=== PATIENT | female | born 1975 | race Caucasian/White ===

== ENCOUNTER 2020-02-29 14:25 | Observation (INO) | payer BC ==
[2020-02-29] MEDS ORDERED: ONDANSETRON 4 MG/2 ML VIAL ONE (15:20)
[2020-02-29] MEDS ORDERED: MORPHINE 4 MG/ML SYR ONE (15:20)
[2020-02-29] MEDS ORDERED: NA CHLORIDE 0.9% 1,000 ML ONE (15:21)
[2020-02-29 15:31] LABS: Basophils % 0.2 % (0-1.3); Hematocrit 42.7 % (36.0-45.0); Lymphocytes % 34.4 % (15.3-44.8); RBC Red Blood Cell Count 4.86 M/uL (3.86-4.86)
[2020-02-29 15:34] LABS: ALT/SGPT 26 U/L (12-78); AST/SGOT 17 U/L (15-37); Albumin 4.1 g/dL (3.4-5.0); Alkaline Phosphatase 94 U/L (45-117); BUN Blood Urea Nitrogen 18 mg/dL (7-18); Bicarbonate 24 mmol/L (21-32); Bilirubin Direct 0.3 mg/dL (0-0.2); Bilirubin Total 1.5 mg/dL (0.2-1.0); Glucose Level 90 mg/dL (74-106); Lipase 103 U/L (73-393); Potassium 3.7 mmol/L (3.5-5.1); Protein, Total 8.2 g/dL (6.4-8.2); Sodium Level 140 mmol/L (136-145)
[2020-02-29] MEDS ORDERED: DIPHENHYDRAMINE 50 MG/ML VIAL ONE (15:40)
[2020-02-29] MEDS ORDERED: FAMOTIDINE 20 MG/2 ML VIAL IV ONE (15:41)
--- NOTE | 2020-02-29 16:17 | RAD REPORT ---
EXAM DESCRIPTION: CT - Abdomen Pelvis W Contrast - 02/29/2020 4:00 pm CLINICAL HISTORY: Abdominal pain COMPARISON: none. TECHNIQUE: Computed axial tomography of the abdomen pelvis was obtained. 100 cc Isovue-300 was admin istered intravenously. Oral contrast was not requested which limits evaluation of bowel. All CT scans are performed using dose optimization technique as appropriate and may include automated exposure control or mA/KV adjustment according to patient size. FINDINGS: Gallstones without gallbladder wall thickening. The liver, spleen, pancreas, adrenals and kidneys are unremarkable There is no evidence of diverticulitis. Normal appendix 8.9 centimeter cystic mass left adnexal. No significant free fluid IMPRESSION: Cholelithiasis without cholecystitis 8.9 centimeter cystic mass left adnexa probably an ovarian cyst. Follow up ultrasound 6 weeks recomme nded for re-evaluation
--- NOTE | 2020-02-29 16:17 | RAD REPORT ---
EXAM DESCRIPTION: US - Abdomen Exam Limited - 02/29/2020 3:49 pm CLINICAL HISTORY: Abdominal pain. COMPARISON: None. FINDINGS: Several gallstones. Gallbladder wall is not thickened The biliary tree is normal caliber. IMPRESSION: Cholelithiasis without evidence of cholecystitis
[2020-02-29] MEDS ORDERED: CIPROFLOXACIN 400mg IV 400 MG/200 ML BAG IV ONE (17:06)
[2020-02-29] MEDS ORDERED: METRONIDAZOLE 500mg IVPB 500 MG/100 ML BAG IV ONE (17:07)
--- NOTE | 2020-02-29 17:27 | EDPHYS ---
Physician Documentation [facility] Name: Laura Hatch Age: 44 yrs Sex: Female : 1975 Arrival Date: 02/29/2020 Time: 14:34 Bed 7 Private MD: ED Physician Benjie Alexander HPI: 02/28 14:50 This 44 yrs old Female presents to ER via Ambulatory with complaints of jmm Fever, Abdominal Pain. 14:50 The patient presents with abdominal pain. Onset: The symptoms/episode began/occurred jmm gradually, 1 week(s) ago. The symptoms radiate to right back. Associated signs and symptoms: Pertinent positives: fever, nausea, Pertinent negatives: diarrhea, vomiting. The symptoms are described as achy. This is a 44 year old female that presents to the ED with complaints of upper back pain which began approx 1 week ago. Denies vomiting. Patient developed worsening pain yesterday. Denies diarrhea. . MANAGER PHILOSOPHY: 18:36 LMP N/A - control method ph Historical: - Allergies: 14:53 No Known Allergies; ll1 - PSHx: 14:53 Tubal ligation; pituatary adenoma removed; D \T\ C; ll1 - Immunization history:: Adult Immunizations unknown. - Social history:: Smoking status: Patient reports the use of cigarette tobacco products, smokes one-half pack cigarettes per day, Patient/guardian denies using alcohol, street drugs. ROS: 14:50 Constitutional: Negative for fever, chills, and weight loss, Cardiovascular: Negative jmm for chest pain, palpitations, and edema, Respiratory: Negative for shortness of breath, cough, wheezing, and pleuritic chest pain. 14:50 Abdomen/GI: Positive for abdominal pain. 14:50 Back: Positive for radiated pain. 14:50 All other systems are negative. Exam: 14:50 Constitutional: This is a well developed, well nourished patient who is awake, alert, jmm and in no acute distress. Head/Face: atraumatic. Eyes: EOMI, no conjunctival erythema appreciated ENT: Moist Mucus Membranes Neck: Trachea midline, Supple Chest/axilla: Normal chest wall appearance and motion. Cardiovascular: Regular rate and rhythm. No edema appreciated Respiratory: Normal respirations, no respiratory distress appreciated 14:50 Skin: General appearance color normal MS/ Extremity: Moves all extremities, no obvious deformities appreciated, no edema noted to the lower extremities Neuro: Awake and alert, normal gait Psych: Behavior is normal, Mood is normal, Patient is cooperative and pleasant 14:50 Abdomen/GI: Inspection: abdomen appears normal, Bowel sounds: normal, Palpation: soft, moderate abdominal tenderness, in the right upper quadrant and right lower quadrant. 14:50 Back: CVA tenderness, that is moderate, is noted on the right. Vital Signs: 14:50 BP 138 / 84; Pulse 90; Resp 18; Temp 98.8; Pulse Ox 100% ; Pain 8/10; ll1 15:44 BP 127 / 95; Pulse 89; Resp 18; Pulse Ox 98% on R/A; ph 16:30 BP 128 / 87; Pulse 81; Resp 18; Pulse Ox 98% on R/A; ph 17:30 BP 123 / 91; Pulse 72; Resp 16; Pulse Ox 99% on R/A; ph 19:20 BP 124 / 77; Pulse 76; Resp 18; Pulse Ox 100% on R/A; mg2 19:44 Temp 98.4(O); mg2 MDM: 14:50 Patient medically screened. [place] 16:35 ED course: Left message for Dr. Garvin, likely early cholecystitis, will admit with international logistics coordinator abx, is NPO since last night. . 17:25 Data reviewed: vital signs, nurses notes. Counseling: I had a detailed discussion with [place] the patient and/or guardian regarding: the historical points, exam findings, and any diagnostic results supporting the discharge/admit diagnosis, lab results, radiology results, the need for further work-up and treatment in the hospital. ED course: Dr. Alexander left voicemail with Dr. Garvin discussing the need for admission. . 02/28 14:51 Order name: Basic Metabolic Panel; Complete Time: 15:38 [place] 02/28 14:51 Order name: CBC with Diff; Complete Time: 15:38 [place] 02/28 14:51 Order name: Hepatic Function; Complete Time: 15:38 [place] 02/28 14:51 Order name: Lipase; Complete Time: 15:38 [place] 02/28 17:49 Order name: Basic Metabolic Panel [facility] 02/28 17:49 Order name: Basic Metabolic Panel [facility] 02/28 17:49 Order name: CBC with Automated Diff [facility] 02/28 17:49 Order name: CBC with Automated Diff [facility] 02/28 17:49 Order name: Lipase [facility] 02/28 17:49 Order name: Lipase [facility] 02/28 17:49 Order name: Liver (Hepatic) Function [facility] 02/28 17:49 Order name: Liver (Hepatic) Function [facility] 02/28 18:07 Order name: Urine Dipstick--Ancillary (enter results) 02/28 18:07 Order name: Urine --Ancillary (enter results); Complete Time: 18:45 02/28 14:51 Order name: IV Saline Lock; Complete Time: 15:04 [place] 02/28 14:51 Order name: Labs collected and sent; Complete Time: 15:04 [place] 02/28 14:51 Order name: US Abdomen Limited; Complete Time: 16:21 [place] 02/28 14:51 Order name: Urine Dipstick-Ancillary (obtain specimen); Complete Time: 18:10 [place] 02/28 15:11 Order name: CT Abd/Pelvis - IV Contrast Only; Complete Time: 16:21 [place] 02/28 17:49 Order name: NPO [facility] 02/28 18:08 Order name: Urine Dipstick-Ancillary; Complete Time: 18:45 [facility] 02/28 19:23 Order name: COVID-19 mg2 Administered Medications: 15:29 Drug: NS 0.9% 1000 ml Route: IV; Rate: 1 bolus; Site: right hand; ph 17:00 Follow up: Response: No adverse reaction; IV Intake: 1000ml ph 17:00 Follow up: IV Status: Completed infusion ph 15:30 Drug: morphine 4 mg Route: IVP; Site: right hand; ph 16:00 Follow up: Response: No adverse reaction; Pain is decreased ph 15:30 Drug: Zofran (Ondansetron) 4 mg Route: IVP; Site: right hand; ph 16:00 Follow up: Response: No adverse reaction; Nausea is decreased ph 15:37 Drug: Pepcid 20 mg Route: IVP; Site: right hand; ph 18:11 Follow up: Response: No adverse reaction ph 17:15 Drug: Cipro 400 mg Volume: 200 ml; Route: IVPB; Infused Over: 60 mins; Site: right hand;ph 18:25 Follow up: Response: No adverse reaction; IV Status: Completed infusion ph 17:16 Not Given (Other Intervention Used): diphenhydrAMINE 12.5 mg IVP once ph 17:50 Drug: Flagyl 500 mg Volume: 100 ml; Route: IVPB; Rate: 200 ml/hr; Infused Over: 30 ph mins; Site: right hand; 18:36 Follow up: Response: No adverse reaction; IV Status: Completed infusion ph 18:07 Drug: fentaNYL (PF) 25 mcg Route: IVP; Site: left antecubital; ph 18:10 Follow up: Response: No adverse reaction; Pain is decreased ph Disposition: 03/01 07:07 Co-signature as Attending Physician, Benjie Alexander MD. rn Disposition: 02/29/20 17:27 Hospitalization ordered by Stuart Garvin for Observation. Preliminary diagnosis is Acute cholecystitis. - Bed requested for Telemetry/MedSurg (observation). - Status is Observation. mg2 - Condition is Stable. - Problem is new. - Symptoms are unchanged. Signatures: Dispatcher [employer] Lydia Pedraza RN RN dw Ld Cortez PA PA Benjie Knight MD MD rn Hall, Patricia, RN RN Sarwat Hidalgo RN RN mg2 Arian Deras RN RN ll1 Corrections: (The following items were deleted from the chart) 02/28 18:31 17:27 Hospitalization Ordered by Stuart Garvin MD for Observation. Preliminary dw diagnosis is Acute cholecystitis. Bed requested for Telemetry/MedSurg (observation). Status is Observation. Condition is Stable. Problem is new. Symptoms are unchanged. [place] 18:37 18:31 02/29/2020 17:27 Hospitalization Ordered by Stuart Garvin MD for Observation. dw Preliminary diagnosis is Acute cholecystitis. Bed requested for Telemetry/MedSurg (observation). Status is Observation. Condition is Stable. Problem is new. Symptoms are unchanged. 19:56 18:37 02/29/2020 17:27 Hospitalization Ordered by Stuart Garvin MD for Observation. mg2 Preliminary diagnosis is Acute cholecystitis. Bed requested for Telemetry/MedSurg (observation). Status is Observation. Condition is Stable. Problem is new. Symptoms are unchanged.
--- NOTE | 2020-02-29 17:27 | ER ---
Nurse's Notes [facility] Name: Laura Hatch Age: 44 yrs Sex: Female : 1975 Arrival Date: 02/29/2020 Time: 14:34 Bed 7 Private MD: Diagnosis: Acute cholecystitis Presentation: 02/28 14:50 Chief complaint: Patient states: PCP saw this past week for UTI. RUQ abd pain and 99.4 ll1 oral temp. Sent for possible gallbladder problem. Coronavirus screen: Proceed with normal triage. Patient denies a cough. Patient denies shortness of breath or difficulty breathing. Patient denies measured and/or subjective temperature greater than 100.4F prior to today's visit. Patient denies travel on a cruise ship or to a country the [facility] currently lists as an affected area. Patient denies contact with known and/or suspected case of COVID-19. Ebola Screen: Patient denies travel to an Ebola-affected area in the 21 days before illness onset. No symptoms or risks identified at this time. Initial Sepsis Screen: Does the patient meet any 2 criteria? No. Patient's initial sepsis screen is negative. Does the patient have a suspected source of infection? Yes: Acute abdominal pain. Risk Assessment: Do you want to hurt yourself or someone else? Patient reports no desire to harm self or others. Onset of symptoms was February 23, 2020. 14:50 Method Of Arrival: Ambulatory ll1 14:50 Acuity: KRISTEN 3 ll1 PHOTO STYLIST: 18:36 LMP N/A - control method ph Historical: - Allergies: 14:53 No Known Allergies; ll1 - PSHx: 14:53 Tubal ligation; pituatary adenoma removed; D \T\ C; ll1 - Immunization history:: Adult Immunizations unknown. - Social history:: Smoking status: Patient reports the use of cigarette tobacco products, smokes one-half pack cigarettes per day, Patient/guardian denies using alcohol, street drugs. Screenin:54 Abuse screen: Denies threats or abuse. Denies injuries from another. Nutritional ph screening: No deficits noted. Tuberculosis screening: No symptoms or risk factors identified. Fall Risk None identified. Assessment: 15:40 General: Appears in no apparent distress. uncomfortable, well groomed, Behavior is ph calm, cooperative, appropriate for age, Reports fever for 12-24 hours. Pain: Complains of pain in right upper quadrant. Neuro: Level of Consciousness is awake, alert, obeys commands, Oriented to person, place, time, situation. Cardiovascular: Capillary refill < 3 seconds Patient's skin is warm and dry. Respiratory: Airway is patent Respiratory effort is even, unlabored, Respiratory pattern is regular, symmetrical. GI: Abdomen is round non-distended, Bowel sounds present X 4 quads. Abd is soft X 4 quads Reports lower abdominal pain, upper abdominal pain, nausea. Derm: Skin is intact, is healthy with good turgor, Skin is pink, warm \T\ dry. Musculoskeletal: Circulation, motion, and sensation intact. Range of motion: intact in all extremities. 16:30 Reassessment: Patient appears in no apparent distress at this time. Patient and/or ph family updated on plan of care and expected duration. Pain level reassessed. Patient is alert, oriented x 3, equal unlabored respirations, skin warm/dry/pink. 17:30 Reassessment: Patient appears in no apparent distress at this time. Patient and/or ph family updated on plan of care and expected duration. Pain level reassessed. Patient is alert, oriented x 3, equal unlabored respirations, skin warm/dry/pink. 18:25 Reassessment: Patient appears in no apparent distress at this time. Patient and/or ph family updated on plan of care and expected duration. Pain level reassessed. Patient is alert, oriented x 3, equal unlabored respirations, skin warm/dry/pink. Dr Garvin at bedside to speak w/ pt. 19:40 Reassessment: Patient appears in no apparent distress at this time. Patient and/or mg2 family updated on plan of care and expected duration. Pain level reassessed. Patient is alert, oriented x 3, equal unlabored respirations, skin warm/dry/pink. Vital Signs: 14:50 BP 138 / 84; Pulse 90; Resp 18; Temp 98.8; Pulse Ox 100% ; Pain 8/10; ll1 15:44 BP 127 / 95; Pulse 89; Resp 18; Pulse Ox 98% on R/A; ph 16:30 BP 128 / 87; Pulse 81; Resp 18; Pulse Ox 98% on R/A; ph 17:30 BP 123 / 91; Pulse 72; Resp 16; Pulse Ox 99% on R/A; ph 19:20 BP 124 / 77; Pulse 76; Resp 18; Pulse Ox 100% on R/A; mg2 19:44 Temp 98.4(O); mg2 ED Course: 14:34 Patient arrived in ED. mr 14:40 Ld Cortez PA is PHCP. jmm 14:40 Benjie Alexander MD is Attending Physician. jmm 14:43 Emilee Palacio RN is Primary Nurse. ph 14:52 Triage completed. ll1 14:53 Arm band placed on Patient placed in an exam room, on a stretcher. ll1 15:00 Initial lab(s) drawn, by me, sent to lab. Inserted saline lock: 20 gauge in right hand, dh3 using aseptic technique. Blood collected. 15:03 Patient has correct armband on for positive identification. Placed in gown. Bed in low ph position. Call light in reach. Side rails up X 1. Pulse ox on. NIBP on. Door closed. Noise minimized. Warm blanket given. 15:43 Radiology exam delayed due to IV insertion attempt and/or patient not having vm2 appropriate IV at this time. 15:48 Inserted saline lock: 20 gauge in left antecubital area, using aseptic technique. dh3 15:49 US Abdomen Limited In Process Unspecified. EDMS 16:00 CT Abd/Pelvis - IV Contrast Only In Process Unspecified. EDMS 17:26 Stuart Garvin MD is Hospitalizing Provider. jmm 18:36 No provider procedures requiring assistance completed. Patient admitted, IV remains in ph place. 19:37 covid 19 swab sent to lab. mg2 Administered Medications: 15:29 Drug: NS 0.9% 1000 ml Route: IV; Rate: 1 bolus; Site: right hand; ph 17:00 Follow up: Response: No adverse reaction; IV Intake: 1000ml ph 17:00 Follow up: IV Status: Completed infusion ph 15:30 Drug: morphine 4 mg Route: IVP; Site: right hand; ph 16:00 Follow up: Response: No adverse reaction; Pain is decreased ph 15:30 Drug: Zofran (Ondansetron) 4 mg Route: IVP; Site: right hand; ph 16:00 Follow up: Response: No adverse reaction; Nausea is decreased ph 15:37 Drug: Pepcid 20 mg Route: IVP; Site: right hand; ph 18:11 Follow up: Response: No adverse reaction ph 17:15 Drug: Cipro 400 mg Volume: 200 ml; Route: IVPB; Infused Over: 60 mins; Site: right hand;ph 18:25 Follow up: Response: No adverse reaction; IV Status: Completed infusion ph 17:16 Not Given (Other Intervention Used): diphenhydrAMINE 12.5 mg IVP once ph 17:50 Drug: Flagyl 500 mg Volume: 100 ml; Route: IVPB; Rate: 200 ml/hr; Infused Over: 30 ph mins; Site: right hand; 18:36 Follow up: Response: No adverse reaction; IV Status: Completed infusion ph 18:07 Drug: fentaNYL (PF) 25 mcg Route: IVP; Site: left antecubital; ph 18:10 Follow up: Response: No adverse reaction; Pain is decreased ph Intake: 17:00 IV: 1000ml; Total: 1000ml. ph Outcome: 17:27 Decision to Hospitalize by Provider. jesus 19:43 Admitted to Med/surg accompanied by tech, via wheelchair, room 210, with chart, Report mg2 called to PRINCE Matos 19:43 Condition: stable 19:43 Instructed on the need for admit, Demonstrated understanding of instructions. 19:56 Patient left the ED. mg2 Signatures: Dispatcher [employer] EDMS Ld Cortez PA PA jmm RiveraChristiane mr PalacioEmilee RN RN Dorothy Murray [facility] Dawn Galvan 3 Sarwat Hidalgo RN RN [facility] Arian Deras RN RN ll1 Corrections: (The following items were deleted from the chart) 14:53 14:50 Chief complaint: Patient states: Saw this past week for UTI. RUQ abd pain and ll1 99.4 oral temp. Sent for possible gallbladder problem. ll1
[2020-02-29] MEDS ORDERED: FENTANYL CITR 100 MCG/2 ML ONE (17:30)
[2020-02-29] MEDS ORDERED: ACETAMINOPHEN 500 MG TAB PO PRN (17:45)
[2020-02-29] MEDS ORDERED: ONDANSETRON 4 MG/2 ML VIAL IV PRN (17:45)
[2020-02-29] MEDS ORDERED: CEFOXITIN/SWI 1gm 1 GM/10 ML SYR IVP SCH (18:00)
[2020-02-29] MEDS ORDERED: CEFOXITIN SODIUM 1 GM/VIAL IVPB SCH (18:00)
[2020-02-29 18:21] LABS: Urine Blood 2+ (NEG); Urine Glucose NEGATIVE (NEG); Urine Protein NEGATIVE (NEG); Urine Specific Gravity 1.015 (1.005-1.030); Urine pH 5.5 (5.0-7.0)
[2020-02-29 20:04] VITALS: BMI 35.7
[2020-02-29] MEDS ORDERED: CEFOXITIN SODIUM 1 GM/VIAL ONE (20:50)
[2020-02-29] MEDS: D5 0.45 NS 1,000 ML IV SCH (20:51)
[2020-02-29] MEDS: CEFOXITIN/SWI 1gm 1 GM/10 ML SYR IVP SCH (20:58)
[2020-03-01] MEDS: FENTANYL CITR 100 MCG/2 ML IV PRN ×2 (00:01→23:41)
[2020-03-01] MEDS: CEFOXITIN/SWI 1gm 1 GM/10 ML SYR IVP SCH ×4 (02:17→20:03)
[2020-03-01] MEDS: D5 0.45 NS 1,000 ML IV SCH ×4 (03:38→23:41)
[2020-03-01 06:01] LABS: Absolute Lymphocytes (CBC) 2.1 K/uL (0.7-4.9); Basophils % 0.2 % (0-1.3); Hematocrit 39.7 % (36.0-45.0); Lymphocytes % 39.6 % (15.3-44.8); MPV 8.8 fL (7.6-11.3); RBC Red Blood Cell Count 4.49 M/uL (3.86-4.86)
[2020-03-01 06:56] LABS: ALT/SGPT 23 U/L (12-78); AST/SGOT 12 U/L (15-37); Albumin 3.5 g/dL (3.4-5.0); Alkaline Phosphatase 80 U/L (45-117); BUN Blood Urea Nitrogen 15 mg/dL (7-18); Bicarbonate 25 mmol/L (21-32); Bilirubin Direct 0.2 mg/dL (0-0.2); Bilirubin Total 1.2 mg/dL (0.2-1.0); Glucose Level 88 mg/dL (74-106); Lipase 127 U/L (73-393); Potassium 4.1 mmol/L (3.5-5.1); Protein, Total 7.1 g/dL (6.4-8.2); Sodium Level 140 mmol/L (136-145)
[2020-03-01] MEDS ORDERED: propofoL 200 MG/20 ML VIAL IV ONE (14:06)
[2020-03-01] MEDS ORDERED: LIDOCAINE 1% MPF 5 ML VIAL ONE (14:08)
[2020-03-01] MEDS ORDERED: Ringers Lactate 1,000 ML IV ONE ×2 (15:04→17:23)
[2020-03-01] MEDS ORDERED: FENTANYL CITR 100 MCG/2 ML ONE ×2 (15:23→16:26)
[2020-03-01] MEDS ORDERED: GLYCOPYRROLATE 0.2 MG/ML SYR ONE (15:23)
[2020-03-01] MEDS ORDERED: MIDAZOLAM HCL 2 MG/2 ML INJ ONE (15:23)
[2020-03-01] MEDS ORDERED: ROCURONIUM 50 MG/5 ML VIAL IV ONE (15:24)
[2020-03-01] MEDS ORDERED: KETOROLAC 30 MG/ML INJ ONE (15:24)
[2020-03-01] MEDS ORDERED: NEOSTIGMINE 1 MG/ML -5 ML ONE (15:24)
[2020-03-01] MEDS ORDERED: ONDANSETRON 4 MG/2 ML VIAL ONE (15:24)
[2020-03-01] MEDS ORDERED: dexAMETHasone 4 MG/ML VIAL ONE (15:24)
--- NOTE | 2020-03-01 15:39 | P.HP ---
Date of Service: 03/01/20 PC: This patient presents emergency room with severe right upper quadrant abdominal pain for diagnosis and treatment. HPC: Patient has been experiencing right upper quadrant abdominal pain, radiating into her back, over the last few months. Pain has intensified both in nature and frequency. Now has the worst pain that she has ever had, describes as almost like labor pains. PMH: Negative PSHx: Surgical resection of pituitary adenoma SOC: No known allergies SYS REVIEW: No cough, wheeze, shortness of breath. No chest pain or palpitations. No urinary complaints. O/E awake alert stable HEENT: Not jaundiced Chest: Chest movement equal bilaterally ABD: Soft , but tender in the right upper quadrant LOCO: Intact DATA: Has documented gallstones IMPRESSION: Acute on chronic cholecystitis with cholelithiasis, biliary colic PLAN: I will take her the operating room for laparoscopic possible open cholecystectomy. The risks of this procedure have been discussed. The possibility of bleeding, infection, injury to bile ducts blood vessels intestines has been described. The possible need for an open and/or further surgeries and procedures was discussed. She understands and wants us to proceed.
--- NOTE | 2020-03-01 17:27 | P.OP ---
Preoperative diagnosis: Acute on chronic cholecystitis with cholelithiasis, biliary colic Postoperative diagnosis: The same Primary procedure: Laparoscopic cholecystectomy Secondary procedure: Cholangiogram Anesthesia: General Estimated blood loss: Less than 10 cc Specimen: Gallbladder and contents Operative Technique: The patient was brought to the operating room placed supine on the table. After the induction of adequate general endotracheal anesthesia, the area of the abdomen is prepped with a DuraPrep solution, and draped in the usual aseptic manner. A subumbilical incision was made. This brought down through the skin and subcutaneous tissue. The Visiport was used to enter the peritoneal cavity and created pneumoperitoneum to approximately 12 mm of mercury. Under direct vision a 5 mm trocar was placed in the upper midline, and 2 other 5 mm trocars on the right lateral side. The patient's head was then elevated and rolled towards the purifying plant operator's side. We could see[a large amount of adhesions in the right upper quadrant. The omentum was adherent to the inferior edge of the right lobe of the liver. This was gently taken down using blunt sharp dissection as well as judicious use of the cautery. We could see a large distended gallbladder with evidence of acute on chronic cholecystitis with thickening of the peritoneal attachments.]. A grasper was placed on the fundus of the gallbladder. A slow tedious dissection was began to remove the ate colic type covering from the gallbladder. The fundus was quite redone. We regrasped about the body of the gallbladder itself. Another 1 was placed down by Belgica's pouch. Applying lateral traction we were able to dissect and finally expose the cystic duct and artery. The artery was dealt with 1st. It was clipped and divided in the usual manner. A clip was then placed between the gallbladder and the cystic duct. An opening was made into the cystic duct. We attempted then to pass the cholangiocath into the cystic duct.[our initial films showed just the distal portion of the mid common bile duct. The balloon was deflated and reinserted. Our 2nd films show that the gallbladder went up into the hepatic duct, but we tied a cholangiogram that showed no evidence of any filling defects. The catheter was then removed.]. Clips were now placed on the distal portion of the cystic duct. The cystic duct was then divided. The gallbladder was now dissected free from the liver bed, placed into an Endo-Catch, and brought out through the umbilical trocar site. The gallbladder fossa was inspected to en sure adequate hemostasis. It was irrigated with a saline solution and the irrigant aspirated from the peritoneal cavity. 0.25% Marcaine was aerosolized into the right upper quadrant and the gallbladder fossa. The umbilical trocar site was now approximated with an Endo Close and 2 absorbable sutures. The pneumoperitoneum was then collapsed, the suture tied, and harvey applied to the skin. A further 0.25% Marcaine was injected around are incision sites. At the end of the procedure the patient was in a stable condition when sent to the recovery room. Needle sponge instrument count were correct. 1 specimen was sent for histopathology. Complications: None Transferred to: Recovery Room Condition: Good
[2020-03-01] MEDS: HYDROMORPHONE HCL 1 MG/ML INJ ONE ×4 (17:41→18:00)
[2020-03-01 18:10] VITALS: O2SAT 99
[2020-03-01] MEDS ORDERED: MORPHINE 4 MG/ML SYR IV PRN (18:29)
[2020-03-01] MEDS: ONDANSETRON 4 MG/2 ML VIAL IV PRN (18:43)
--- NOTE | 2020-03-01 20:11 | RAD REPORT ---
EXAM DESCRIPTION: RAD - Cholangiogram Oper-Xray Or - 03/01/2020 5:27 pm FINDINGS: There were 5 portable C-arm views obtained during fluoroscopic assisted intraoperative cho langiogram. No suspicious or unexpected finding. Evaluation is limited when only selected images are submitted. Fluoro time was 0.1 minutes.
[2020-03-02] MEDS: D5 0.45 NS 1,000 ML IV SCH ×2 (02:00→08:32)
[2020-03-02] MEDS: CEFOXITIN/SWI 1gm 1 GM/10 ML SYR IVP SCH ×3 (03:03→15:55)
[2020-03-02] MEDS: ONDANSETRON 4 MG/2 ML VIAL IV PRN (05:44)
[2020-03-02 06:47] LABS: Absolute Lymphocytes (CBC) 1.4 K/uL (0.7-4.9); Basophils % 0.1 % (0-1.3); Lymphocytes % 16.5 % (15.3-44.8); MPV 8.6 fL (7.6-11.3); RBC Red Blood Cell Count 4.64 M/uL (3.86-4.86)
[2020-03-02 06:52] LABS: Albumin 3.6 g/dL (3.4-5.0); Bilirubin Direct 0.2 mg/dL (0-0.2); Bilirubin Total 1.1 mg/dL (0.2-1.0); Protein, Total 7.3 g/dL (6.4-8.2)
[2020-03-02] MEDS: HYDROCODONE/APAP 7.5/325 MG TAB PO PRN ×2 (08:33→16:29)
[2020-03-02 16:44] VITALS: BP 131/67; TEMP 98.3
== END 2020-03-02 17:00 | disposition home or self-care (01) ==
LOC: ER 14:25 → ERHOLD 17:44 → 2ND 19:44
PROVIDERS: ADMIT Surgery; ATTEND Surgery
PROC: 0FT44ZZ Resection of Gallbladder, Percutaneous Endoscopic Approach (ICD-10-PCS; principal; 2020-02-29)
PROC: BF13YZZ Fluoroscopy of Gallbladder and Bile Ducts using Other Contrast (ICD-10-PCS; 2020-02-29)
DX: K80.12 Calculus of gallbladder with acute and chronic cholecystitis without obstruction (principal); R50.9 Fever, unspecified; Z20.828 Contact with and (suspected) exposure to other viral communicable diseases; F17.210 Nicotine dependence, cigarettes, uncomplicated
CPT/HCPCS: 96365; 96361; 96368; 85025 ×3; 80048 ×2; 36415 ×2; 81025; 80076 ×3; 88304; 81003; 83690 ×2; 74177; 74300; 76705; 96375; 99285; 47563; U0002; Q9967; J2704; J1200; J2250; J3010 ×5; J1170 ×2; J2710; G0378 ×5; J7799 ×5; J7120 ×2; J7030; J0694; J2405 ×4; J0744

== ENCOUNTER 2020-04-17 06:10 | Day surgery (SDC) | payer BC ==
[2020-04-15 17:02] LABS: Absolute Lymphocytes (CBC) 1.8 K/uL (0.7-4.9); Basophils % 0.2 % (0-1.3); Hematocrit 42.7 % (36.0-45.0); Lymphocytes % 36.2 % (15.3-44.8); MPV 8.3 fL (7.6-11.3)
[2020-04-15 17:11] LABS: Urine Appearance CLEAR; Urine Blood 2+ (NEG); Urine Color YELLOW; Urine Glucose NEGATIVE (NEG); Urine Protein NEGATIVE (NEG); Urine Specific Gravity >=1.030 (1.005-1.030); Urine Urobilinogen 0.2 mg/dL (0.2-1.0); Urine pH 5.5 (5.0-7.0)
[2020-04-15 18:23] LABS: Urine Bilirubin NEGATIVE (NEG); Urine Microscopic Reflex ORDER UMIC
[2020-04-15 21:11] LABS: Urine Amorphous Sediment 1+ /HPF (NONE SEEN); Urine Bacteria 20-50 /HPF (<20); Urine Culture Reflex Order REFLEXED; Urine Mucus 4+ /HPF (NONE SEEN)
--- OUTSIDE RECORDS SUMMARY | 2020-04-17 06:17 | XMS REPORT | Continuity of Care Document ---
:1975 Author Organization [facility] t Address [address] Nascimento [address] [place] [id number] Care Team Providers Name Role Phone Blue BANKS Attending Clinician Problems This patient has no known problems. Allergies, Adverse Reactions, Alerts This patient has no known allergies or adverse reactions. Medications This patient has no known medications. Procedures This patient has no known procedures. Encounters Start End Encounter Admission Attending Care Care Encounter Source Date/Time Date/Time Type Type Clinicians Facility Department ID 2019-11-22 2019-11-22 Refill АНДРЕЙ [place] [id number] 00:00:00 00:00:00 Adriane Jason [id number] [place] [id number] Professio [phone] [address] 2019-11-06 2019-11-06 Case Blue MDSINCERE [id number] 00:00:00 00:00:00 Management Adriane Jason [id number] [place] [id number] Professio [id number] [address] 2019-11-06 2019-11-06 Telephone АНДРЕЙ [place] [id number] 00:00:00 00:00:00 Adriane Jason [id number] [place] [id number] Professio [id number] [address] 2019-10-30 2019-10-30 Office TIMO [place] [id number] 10:09:10 10:34:29 Visit Adriane Jason [id number] [place] [id number] Man [phone] [facility] Results This patient has no known results.
[2020-04-17 06:34] LABS: Specific Gravity 1.025 (1.005-1.030)
[2020-04-17] MEDS: Ringers Lactate 1,000 ML IV ONE (06:35)
[2020-04-17] MEDS ORDERED: CEFAZOLIN/SWI 2gm 2 GM/20 ML SYR ONE (06:35)
[2020-04-17] MEDS ORDERED: MIDAZOLAM HCL 2 MG/2 ML INJ ONE (07:06)
[2020-04-17] MEDS ORDERED: propofoL 200 MG/20 ML VIAL IV ONE (07:06)
[2020-04-17] MEDS ORDERED: FENTANYL CITR 250 MCG/5 ML ONE (07:06)
[2020-04-17] MEDS ORDERED: ONDANSETRON 4 MG/2 ML VIAL ONE ×2 (07:06→08:55)
[2020-04-17] MEDS ORDERED: ROCURONIUM 50 MG/5 ML VIAL IV ONE (07:06)
[2020-04-17] MEDS ORDERED: LIDOCAINE 2% MPF 5 ML VIAL ONE (07:06)
[2020-04-17] MEDS ORDERED: dexAMETHasone 10 MG/ML VIAL ONE (07:06)
--- NOTE | 2020-04-17 07:34 | PREOPHP ---
Date of Admission: 04/17/2020 History: A 45-year-old female, left adnexal mass, significant pelvic pain. Full preoperative counse ling concerning procedure and possible complications, including infection, blood loss, anesthetic com plications, injury to bladder, bowel, and ureter, possibility of open procedure. We will probably re move the left tube and ovary, possibly the right tube and ovary and we will get the appendix. Dr. Kalyani alexander is insurance account assistant surgeon, the patient is aware. Family History: Really noncontributory. Allergies: SHE HAS AN ALLERGY TO MORPHINE, OTHERWISE, NO ALLERGIES. Physical Examination: HEENT: Clear. Pupils are equal, round, and reactive to light and accommodation. Conjunctivae well perfused. No oral, lingual, or buccal lesion. Chest and Lungs: Clear. Heart: Without murmurs, thrills, heaves, or rubs. Breasts: Not examined. Abdomen: Soft, but lower abdominal tenderness. Pelvic: Shows tenderness, the patient is reporting really on the right side, but on the left side as well. Extremities: Clear, without edema, cyanosis, or clubbing. Plan: We will perform diagnostic laparoscopy, possible left salpingo-oophorectomy, possible right sa lpingo-oophorectomy and even possible appendectomy. Tumor markers are in the normal range. RODRIGUEZ/JC Voice ID: [id number]
[2020-04-17] MEDS ORDERED: GLYCOPYRROLATE 0.2 MG/ML SYR ONE (08:29)
[2020-04-17] MEDS ORDERED: NEOSTIGMINE 1 MG/ML -5 ML ONE (08:29)
[2020-04-17] MEDS ORDERED: KETOROLAC 30 MG/ML INJ ONE (08:29)
[2020-04-17] MEDS: HYDROMORPHONE HCL 1 MG/ML INJ ONE ×2 (08:46→08:52)
[2020-04-17] MEDS: HYDROMORPHONE HCL 2 MG/ML inj ONE ×3 (08:57→09:08)
--- NOTE | 2020-04-17 09:13 | OP ---
Surgeon: Wisam Burroughs MD Indications: Laura Hatch is 45-year-old female with severe pelvic pain, left adnexal mass. Tumor markers all normal. Full preoperative counseling concerning procedure and possible complications, i ncluding infection, blood loss, anesthetic complications, injury to bladder, bowel, ureter, postopera tive complications, clots in legs, and pneumonia. The patient knows fully well this does not constit benjamin all the possible problems that could occur during or following surgery. Description Of Procedure: After adequate general anesthesia, time-out was performed. The patient casper d been given 2 g of Ancef preop for prophylaxis. Trocars were placed below the umbilicus and above t he pubis and on the left lower quadrant after visualization of the upper abdomen where the patient re cently had gallbladder removal, nothing was seen abnormal. The uterus was viewed, noted to be normal . There was a large hemorrhagic looking left ovarian mass at least 9 cm. This was drained. Fluid w ill be sent to Pathology. It looked clear and normal. After the cyst had been reduced, a left salpi da silva-oophorectomy was performed using the LigaSure device. Minimal blood loss, less than 10 cc. The right tube and ovary were visualized, noted to be normal. The appendix was normal. All other abdomi nal contents viewed, noted to be normal. The procedure was discontinued at this point. Trocars jeanne harjinder and punctures sites closed. The patient tolerated all procedures well, transferred to the [facility] room in good condition. Final Diagnoses: Severe pelvic pain, left adnexal mass, diagnostic laparoscopy, cystectomy, left diane pingo-oophorectomy. RODRIGUEZ/MARISELAL Voice ID: [id number] Report ID: [id number]
--- NOTE | 2020-04-17 09:19 | DS ---
The patient underwent diagnostic laparoscopy, cystectomy, left salpingo-oophorectomy. Appendix noted to be normal and right tube and ovary noted to be normal. Minimal blood loss, 10 cc or less. The p atient will be observed for the next 2 hours, then dismissed. To return my office in 1 week for foll owup. To report any temperature elevation of 100 degrees or greater, severe pain, heavy bleeding, or any other type of abnormalities. We will send her home at her request with tramadol, although I doub t she will really need this. Pathology is pending, but all tumor markers were negative and suspect s imple cyst, possible serous cyst, but does not appear malignant at this point. Pathology pending. RODRIGUEZ/JC Voice ID: [id number] Report ID: [id number]
[2020-04-17] MEDS ORDERED: PROMETHAZINE INJ 25 MG/ML AMP ONE (09:32)
[2020-04-17 11:19] VITALS: BP 108/71; TEMP 96.6; O2SAT 96
== END 2020-04-17 10:40 | disposition home health service (06) ==
LOC: OR 06:10
PROVIDERS: ATTEND Specialist
PROC: 0UT64ZZ Resection of Left Fallopian Tube, Percutaneous Endoscopic Approach (ICD-10-PCS; 2020-04-17)
PROC: 0U914ZX Drainage of Left Ovary, Percutaneous Endoscopic Approach, Diagnostic (ICD-10-PCS; 2020-04-17)
PROC: 0UT14ZZ Resection of Left Ovary, Percutaneous Endoscopic Approach (ICD-10-PCS; principal; 2020-04-17 07:30)
DX: D27.1 Benign neoplasm of left ovary (principal); N80.1 Endometriosis of ovary; N83.02 Follicular cyst of left ovary; N83.8 Other noninflammatory disorders of ovary, fallopian tube and broad ligament; Z11.59 Encounter for screening for other viral diseases
CPT/HCPCS: 58661; 87088; 85025; 87086; 36415; 86900; 88108; 86850; 81025; 85610; 86901; 88305; 88307; 85730; 87077; 87186; 49322; U0002; J2704; J2550; J2250; J1170 ×2; J3010; J1100; J2710; J0690; J7120; J2405 ×2; 81003; 81015

== ENCOUNTER 2021-08-07 16:17 | Emergency (ER) | payer BC ==
[2021-08-07 16:44] LABS: Urine Blood 1+ (Negative); Urine Glucose Negative (Negative); Urine Protein Negative (Negative); Urine Specific Gravity >=1.030 (1.005-1.030); Urine pH 5.5 (5.0-7.0)
[2021-08-07 17:12] LABS: Urine Bacteria >50 /HPF (<20); Urine Mucus MOD /HPF (NONE SEEN); Urine RBC <5 /HPF (NONE SEEN)
[2021-08-07 17:15] LABS: Urine Specific Gravity/Preg >1.030 (1.005-1.030)
--- NOTE | 2021-08-07 17:15 | RAD REPORT ---
EXAM DESCRIPTION: CTStone Protocol - 08/07/2021 4:57 pm CLINICAL HISTORY: FLANK PAIN COMPARISON: No comparisonsAbdomen Pelvis W Contrast dated 02/29/2020 TECHNIQUE: CT of the abdomen and pelvis was performed. All CT scans are performed using dose optimization technique as appropriate and may include automated exposure control or mA/KV adjustment according to patient size. FINDINGS: Lower chest: No acute abnormality. Small hiatal hernia. Liver: No acute abnormality or suspicious lesions. Biliary: Cholecystectomy Stomach: No significant focal abnormality. Duodenum: No significant focal abnormality. Pancreas: No significant abnormality. Spleen: No significant abnormality. Adrenal: No suspicious lesions. Kidney/ureter: No hydronephrosis. Punctate right renal calculus. Retroperitoneum: No retroperitoneal adenopathy. Vascular: No aneurysm. Bowel: No significant focal abnormality. Normal appendix. Peritoneum: No ascites or free air. Bladder: Grossly unremarkable. Reproductive: No adnexal masses. Bones: No acute fracture. Other: n/a IMPRESSION: No acute intra-abdominal or pelvic finding. Punctate right renal calculus.
--- NOTE | 2021-08-07 17:22 | ER ---
Nurse's Notes [facility] Name: Laura Hatch Age: 46 yrs Sex: Female : 1975 Arrival Date: 08/07/2021 Time: 16:19 Bed Waiting Private MD: Francisco Castrejon R Diagnosis: UTI/ Urinary tract infection, site not specified Presentation: 08/07 16:33 Chief complaint: Patient states: possible kidney stone on left side, left flank pain X iw 1 week , constant , felt like she had a UTI, cloudy urine , has been through a round of abx. Coronavirus screen: At this time, the client does not indicate any symptoms associated with coronavirus-19. Ebola Screen: Patient negative for fever greater than or equal to 101.5 degrees Fahrenheit, and additional compatible Ebola Virus Disease symptoms Patient denies exposure to infectious person. Patient denies travel to an Ebola-affected area in the 21 days before illness onset. No symptoms or risks identified at this time. Initial Sepsis Screen: Does the patient meet any 2 criteria? No. Patient's initial sepsis screen is negative. Does the patient have a suspected source of infection? No. Patient's initial sepsis screen is negative. Risk Assessment: Do you want to hurt yourself or someone else? Patient reports no desire to harm self or others. Onset of symptoms was July 31, 2021. 16:33 Method Of Arrival: Ambulatory iw 16:33 Acuity: KRISTEN 3 iw Triage Assessment: 17:28 General: Appears in no apparent distress. Behavior is calm, cooperative. 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 - Social history:: Smoking status: Smoking status: Patient/guardian denies using tobacco. Screenin:25 Abuse screen: Denies threats or abuse. Denies injuries from another. Nutritional iw screening: No deficits noted. Tuberculosis screening: No symptoms or risk factors identified. Fall Risk None identified. Assessment: 16:35 General: Appears in no apparent distress. Behavior is calm, cooperative. Pain: iw Complains of pain in pelvis and left flank. Neuro: Level of Consciousness is awake, alert, obeys commands, Oriented to person, place, time, situation, Moves all extremities. Full function. Cardiovascular: Patient's skin is warm and dry. Respiratory: Respiratory effort is even, unlabored. GI: Bowel sounds present X 4 quads. Abd is soft X 4 quads. Derm: Skin is intact, is healthy with good turgor. Musculoskeletal: Range of motion: intact in all extremities. Vital Signs: 16:34 BP 131 / 94; Pulse 75; Resp 16; Temp 98.8; Pulse Ox 100% on R/A; Weight 97.07 kg; iw Height 5 ft. 6 in. (167.64 cm); 16:34 Body Mass Index 34.54 (97.07 kg, 167.64 cm) iw ED Course: 16:19 Patient arrived in ED. as 16:20 Francisco Castrejon MD is Private Physician. as 16:34 Triage completed. iw 16:35 Patient has correct armband on for positive identification. iw 16:36 Arm band placed on. iw 16:37 Holly Barraza FNP-C [facility]. kb 16:37 Mike Can MD is Attending Physician. kb 16:57 CT Stone Protocol In Process Unspecified. EDMS 17:25 No provider procedures requiring assistance completed. Patient did not have IV access iw during this emergency room visit. 17:28 Scarlet Landaverde, RN is Primary Nurse. iw Administered Medications: 17:29 Drug: Ibuprofen 800 mg Route: PO; iw 17:30 Follow up: Response: No adverse reaction iw 17:29 Drug: Augmentin (Amoxicillin-Clavulanate) 875 mg Route: PO; iw 17:29 Follow up: Response: No adverse reaction iw 17:30 Follow up: Response: No adverse reaction iw Outcome: 17:21 Discharge ordered by . kb 17:28 Discharged to home ambulatory. iw 17:28 Condition: good 17:28 Discharge instructions given to patient, Instructed on discharge instructions, follow up and referral plans. medication usage, Demonstrated understanding of instructions, follow-up care, medications, Prescriptions given X 2. 17:29 Patient left the ED. iw Signatures: Dispatcher [employer] EDMS Holly Barraza FNP-C BEAM SAW OPERATOR-Ckb Padmaja Ontiveros as Scarlet Landaverde, RN RN iw
--- NOTE | 2021-08-07 17:22 | EDPHYS ---
Physician Documentation [facility] Name: Laura Hatch Age: 46 yrs Sex: Female : 1975 Arrival Date: 08/07/2021 Time: 16:19 Bed Waiting Private MD: Francisco Castrejon R ED Physician Mike Can HPI: 08/07 17:20 This 46 yrs old Female presents to ER via Ambulatory with complaints of kb Possible Kidney Stone. 17:20 The patient complains of pain in the left flank. Severity of pain: At its worst the kb pain was moderate in the emergency department the pain is unchanged. The patient has not experienced similar symptoms in the past. The patient has not recently seen a physician. 17:20 The pain radiates to the left inguinal area. Onset: The symptoms/episode began/occurred kb 1 week(s) ago. Modifying factors: The symptoms are alleviated by nothing. the symptoms are aggravated by nothing. Associated signs and symptoms: The patient has no apparent associated signs or symptoms. IP PARALEGAL: 16:34 LMP 07/31/2021 iw Historical: - Allergies: 16:34 No Known Allergies; iw - Home Meds: 16:36 None [Active]; iw - PMHx: 16:36 None; iw - PSHx: 16:36 Cholecystectomy; left ovary removed; pituitary tumor removed; tubal ligation; iw - Immunization history:: Client reports receiving the 2nd dose of the Covid vaccine. - Social history:: Smoking status: Smoking status: Patient/guardian denies using tobacco. ROS: 17:19 Constitutional: Negative for fever, chills, and weight loss. kb 17:19 : Positive for flank pain, suprapubic pain. 17:19 All other systems are negative. Exam: 17:19 Constitutional: This is a well developed, well nourished patient who is awake, alert, kb and in no acute distress. Head/Face: Normocephalic, atraumatic. ENT: Moist Mucous membranes Respiratory: Respirations even and unlabored. No increased work of breathing, no retractions or nasal flaring. Abdomen/GI: Soft, non-tender. No distention Skin: Warm, dry with normal turgor. Normal color. MS/ Extremity: Pulses equal, no cyanosis. Neurovascular intact. Full, normal range of motion. Neuro: Awake and alert, GCS 15, oriented to person, place, time, and situation. Moves all extremities. Normal gait. Psych: Awake, alert, with orientation to person, place and time. Behavior, mood, and affect are within normal limits. 17:19 Back: pain, that is moderate, ROM is painful, CVA tenderness, that is mild, is noted on the left. Vital Signs: 16:34 BP 131 / 94; Pulse 75; Resp 16; Temp 98.8; Pulse Ox 100% on R/A; Weight 97.07 kg; iw Height 5 ft. 6 in. (167.64 cm); 16:34 Body Mass Index 34.54 (97.07 kg, 167.64 cm) iw MDM: 16:40 Patient medically screened. kb 17:17 Data reviewed: vital signs, nurses notes. Data interpreted: Pulse oximetry: on room air kb is 100 %. Interpretation: normal. 17:21 Counseling: I had a detailed discussion with the patient and/or guardian regarding: the kb historical points, exam findings, and any diagnostic results supporting the discharge/admit diagnosis, lab results, radiology results, the need for outpatient follow up, a family practitioner, to return to the emergency department if symptoms worsen or persist or if there are any questions or concerns that arise at home. 08/07 16:37 Order name: Urine Microscopic Only; Complete Time: 17:13 kb 08/07 16:44 Order name: Urine Dipstick-Ancillary; Complete Time: 16:47 [facility] 08/07 16:37 Order name: CT Stone Protocol; Complete Time: 17:20 kb 08/07 17:07 Order name: Urine --Ancillary (enter results); Complete Time: 17:16 iw 08/07 17:13 Order name: Urine Culture [facility] 08/07 16:37 Order name: Urine Dipstick-Ancillary (obtain specimen); Complete Time: 17:07 kb 08/07 16:37 Order name: Urine Test (obtain specimen); Complete Time: 17:07 kb Administered Medications: 17:29 Drug: Ibuprofen 800 mg Route: PO; iw 17:30 Follow up: Response: No adverse reaction iw 17:29 Drug: Augmentin (Amoxicillin-Clavulanate) 875 mg Route: PO; iw 17:29 Follow up: Response: No adverse reaction iw 17:30 Follow up: Response: No adverse reaction iw Disposition Summary: 08/07/21 17:21 Discharge Ordered Location: Home kb Condition: Stable kb Diagnosis - UTI/ Urinary tract infection, site not specified kb Followup: kb - With: Emergency Department - When: As needed - Reason: Worsening of condition Followup: kb - With: Private Physician - When: 2 - 3 days - Reason: Recheck today's complaints, Continuance of care, Re-evaluation by your physician Discharge Instructions: - Discharge Summary Sheet kb - Urinary Tract Infection, Adult, [id number] kb Forms: - Medication Reconciliation Form kb - Thank You Letter kb - Antibiotic Education kb - Prescription Opioid Use kb Prescriptions: - Augmentin 875-125 mg Oral Tablet - take 1 tablet by ORAL route every 12 hours for 10 days; 20 tablet; Refills: 0, kb Product Selection Permitted - Ibuprofen 800 mg Oral Tablet - take 1 tablet by ORAL route every 8 hours As needed take with food; 30 tablet; kb Refills: 0, Product Selection Permitted Addendum: 08/09/2021 03:48 Co-signature as Attending Physician, Mike Can MD I agree with the assessment and k dr plan of care. Signatures: Dispatcher [employer] Holly Medina, WOUND CARE COORDINATOR-C WOUND CARE COORDINATOR-Mike Luevano MD MD [facility] Scarlet Landaverde, PRINCE RN iw
[2021-08-07] MEDS ORDERED: AMOX/K CLAV 875 MG TAB ONE (17:24)
[2021-08-07] MEDS ORDERED: IBUPROFEN 400 MG TAB ONE (17:25)
[2021-08-07 17:40] VITALS: BP 131/94; TEMP 98.8; O2SAT 100
--- OUTSIDE RECORDS SUMMARY | 2021-08-08 23:04 | XMS REPORT | Continuity of Care Document ---
:1975 Author Organization [facility] t Address [address] Nascimento [address] [place] [address] Care Team Providers Name Role Phone Blue [...] Department ID 2019-11-22 2019-11-22 Refill АНДРЕЙ [place] [id number] 00:00:00 00:00:00 Adriane Jason [id number] [place] [id number] Professio [phone] [address] 2019-11-06 2019-11-06 Case Blue [place] [id number] 00:00:00 00:00:00 Management Adriane Jason [id number] [place] [id number] Professio [phone] [address] 2019-11-06 2019-11-06 Telephone АНДРЕЙ [place] [id number] 00:00:00 00:00:00 Adriane Jason [id number] [place] [id number] Professio [phone] [address] 2019-10-30 2019-10-30 Office АНДРЕЙ [place] [id number] 1983 10:09:10 10:34:29 Visit Adriane Jason [id number] [place] [id number] Man [phone] [facility] [address] Results Test Description Test Time Test Comments Results Result Comments Source SARS-COV2/RT-PCR ([facility]) 2020-03-01 03:59:00 Test Item Value Reference Range Interpretation Comme nts SARS-COV2/RT-PCR (test code = 4241753) Not Detected Not Detected, N egative SARS-COV-2 PERFORMING LAB (test code = [facility] 0225144) Negative results do not preclude SARS-CoV-2 infection and should not be used as the sole basis for patient management decisions. Negative results must be combined with clinical observations, patient history, and epidemiological information. A false negative result may occur if a specimen is improperly collected, transported or handled.The limit of detection for this assay is 250 copies/mL.This SARS CoV-2 test is a rapid, real-time RT-PCR test intended for the qualitative detection of nucleic acid from SARS-CoV-2 in a nasopharyngeal swab specimen collected from individuals suspected of COVID-19 by their healthcare provider.This test has not been Food and Drug Administration (FDA) cleared or approved and has been authorized by FDA under an Emergency Use Authorization (EUA). This EUA will be effective until the declaration that circumstances exist justifying the authorization of the emergency use of in vitro diagnostic tests for detection and/or diagnosis of COVID-19 is terminated under Section 564(b)(2) of the Act or the EUA is revoked under Section 564(g) of the Act.Fact Sheet for Healthcare Pro viders:https://www.[employer].com/Documents/Xpert%20Xpress%20SARS%20CoV-2/Fact%20Sh eets/302-4562%24DOQM-DTX-7%20HEALTHCARE%20PROVIDERS%20FACT%20SHEET.pdfFact Sheet for Healthcare Patients:https://www.Well[employer] id.[employer]/Documents/Xpert%20Xpress%20SARS%20CoV-2/Fact%20Sheets/3023801%20SARS-COV -2%20PATIENT%20FACT%20SHEET.pdfPerforming Laboratory:[facility] [place] [address]
== END 2021-08-07 17:29 | disposition home or self-care (01) ==
LOC: ER 16:17
DX: N39.0 Urinary tract infection, site not specified (principal)
CPT/HCPCS: 74176; 76377; 81003; 81015; 81025; 87086; 87088; 99283

== ENCOUNTER 2022-09-29 10:31 | Emergency (ER) | payer BC ==
--- OUTSIDE RECORDS SUMMARY | 2022-09-29 10:46 | XMS REPORT | Continuity of Care Document ---
:1975 Author Organization [facility] t Address [address] Nascimento [address] [place] [address] Care Team Providers Name Role Phone Adriane Mc[place] PA-C Attending Clinician Problems This patient has no known problems. Allergies, Adverse Reactions, Alerts This patient has no known allergies or adverse reactions. Medications This patient has no known medications. Procedures This patient has no known procedures. Encounters Start End Encounter Admission Attending Care Care Encounter Source Date/Time Date/Time Type Type Clinicians Facility Department ID 2019-11-22 2019-11-22 Refill Blue [facility] [id number] 00:00:00 00:00:00 Adriane Jason [id number] [place] [id number] Professio [phone] [address] 2019-11-06 2019-11-06 Case Blue [facility] [id number] 00:00:00 00:00:00 Management Adriane Jason [id number] [place] [id number] Professio [phone] [address] 2019-11-06 2019-11-06 Telephone Blue [place] [id number] 00:00:00 00:00:00 Adriane Jason [id number] [place] [id number] Professio [phone] [address] 2019-10-30 2019-10-30 Office АНДРЕЙ [place] [id number] 10:09:10 10:34:29 Visit Adriane Jason [id number] [place] [id number] Man [phone] [address] Results This patient has no known results.
[2022-09-29] MEDS ORDERED: HYDROCODONE/CHLORPHEN 5 ML/OSYR ONE (11:21)
[2022-09-29 11:22] LABS: Urine Blood 2+ (Negative); Urine Glucose Negative (Negative); Urine Protein 1+ (Negative); Urine Specific Gravity 1.025 (1.005-1.030)
[2022-09-29 12:41] LABS: SARS-COV-2 RT PCR POSITIVE (NEGATIVE)
--- NOTE | 2022-09-29 12:59 | ER ---
Nurse's Notes [facility] Name: Laura Hatch Age: 47 yrs Sex: Female : 1975 Arrival Date: 09/29/2022 Time: 10:33 Bed 13 Private MD: Diagnosis: Coronavirus infection, unspecified Presentation: 09/29 10:46 Chief complaint: Patient states: cough, scratchy throat, body aches that began aa5 yesterday. Denies fever. Coronavirus screen: cough unrelated to allergies. Ebola Screen: Patient denies travel to an Ebola-affected area in the 21 days before illness onset. Initial Sepsis Screen: Does the patient meet any 2 criteria? HR > 90 bpm. Does the patient have a suspected source of infection? No. Patient's initial sepsis screen is negative. Risk Assessment: Do you want to hurt yourself or someone else? Patient reports no desire to harm self or others. Onset of symptoms was September 2022. 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 - Social history:: Smoking status: Patient reports the use of cigarette tobacco products, 2-3 cigarettes a day . Screenin:56 [facility] ED Fall Risk Assessment (Adult) History of falling in the last 3 months, ko1 including since admission No falls in past 3 months (0 pts) Confusion or Disorientation No (0 pts) Intoxicated or Sedated No (0 pts) Impaired Gait No (0 pts) Mobility Assist Device Used No (0 pt) Altered Elimination No (0 pt) Score/Fall Risk Level 0 - 2 = Low Risk Oriented to surroundings, Maintained a safe environment, Educated pt \\T\\ family on fall prevention, incl call for assistance when getting out of bed, Assessed \\T\\ reinforced patient's understanding of fall precautions, Provided non-skid footwear, Hourly rounding (assess needs \\T\\ fall precautionary measures) done, Used ambulatory aids as needed (educated on \\T\\ assisted with), Used gait belt as appropriate. Abuse screen: Denies threats or abuse. Denies injuries from another. Nutritional screening: No deficits noted. Tuberculosis screening: No symptoms or risk factors identified. Assessment: 10:56 General: Appears in no apparent distress. comfortable, Behavior is calm, cooperative, ko1 appropriate for age. Pain: Complains of pain in generalized body aches. Neuro: No deficits noted. Cardiovascular: No deficits noted. Respiratory: Reports cough that is non-productive. GI: No deficits noted. : No deficits noted. EENT: Reports pain when swallowing. Derm: No deficits noted. Musculoskeletal: No deficits noted. Vital Signs: 10:46 BP 139 / 88; Pulse 112; Resp 18 S; Temp 98.8(TE); Pulse Ox 98% on R/A; Weight 99.79 kg aa5 (R); Height 5 ft. 6 in. (167.64 cm) (R); 13:04 BP 128 / 80; Pulse 98; Resp 18; Pulse Ox 99% on R/A; ko1 10:46 Body Mass Index 35.51 (99.79 kg, 167.64 cm) aa5 ED Course: 10:33 Patient arrived in ED. mr 10:38 Ld Cortez PA is PHCP. jmm 10:38 Ravin Vazquez MD is Attending Physician. jmm 10:39 Arm band placed on. aa5 10:41 Triage completed. aa5 10:49 Nidia Munguia, RN is Primary Nurse. ko1 10:56 Patient has correct armband on for positive identification. Bed in low position. Call ko1 light in reach. Pulse ox on. NIBP on. 10:56 No provider procedures requiring assistance completed. Patient did not have IV access ko1 during this emergency room visit. 11:00 Strep Sent. bc6 11:00 COVID-19/FLU A+B Sent. bc6 11:00 COVID swab sent to lab. Strep swab sent to lab. bc6 Administered Medications: 11:27 Drug: Tussionex Pennkinetic ER (chlorpheniramine-hydrocodone) Suspension 5 ml Route: PO;ko1 Medication: 10:56 VIS not applicable for this client. ko1 Outcome: 12:58 Discharge ordered by . jesus 13:04 Discharged to home ambulatory, with family. ko1 13:04 Condition: stable 13:04 Discharge instructions given to patient, family, Instructed on discharge instructions, follow up and referral plans. medication usage, Demonstrated understanding of instructions, follow-up care, medications, Prescriptions given X 1. 13:08 Patient left the ED. ko1 Signatures: Ld Cortez PA PA jmChristiane StevensonParisa, RN RN aa5 Nidia Munguia RN RN ko1 Vicky Mckeon 6 Corrections: (The following items were deleted from the chart) 10: 10:39 Chief complaint: Patient states: cough, congestion x 5-6 days ago. Pt states aa5 "nothing I take over the counter helps" aa5 : 10:39 Coronavirus screen: congestion, cough unrelated to allergies, aa5 aa5 10: 10:39 Ebola Screen: Patient denies travel to an Ebola-affected area in the 21 days aa5 before illness onset. aa5 10: 10:39 Initial Sepsis Screen: Does the patient meet any 2 criteria? No. Patient's aa5 initial sepsis screen is negative. Does the patient have a suspected source of infection? No. Patient's initial sepsis screen is negative. aa5 10:41 10:39 Risk Assessment: Do you want to hurt yourself or someone else? Patient reports no aa5 desire to harm self or others. aa5 10: 10:39 Onset of symptoms was August 2022 aa5 aa5 10:41 10:39 Method Of Arrival: Ambulatory aa5 aa5 10: 10:39 Acuity: KRISTEN 4 aa5 aa5 10:41 10:39 BP 140 / 92; Pulse 92bpm; Resp 18bpm; Spontaneous; Pulse Ox 99% RA; Temp 97.9F aa5 Temporal; aa5
--- NOTE | 2022-09-29 12:59 | EDPHYS ---
Physician Documentation [facility] Name: Laura Hatch Age: 47 yrs Sex: Female : 1975 Arrival Date: 09/29/2022 Time: 10:33 Bed 13 Private MD: ALETA Physician Ravin Vazquez HPI: 09/29 10:43 This 47 yrs old Female presents to ER via Ambulatory with complaints of Flu Symptoms. [facility] 10:43 The patient or guardian reports cough. Onset: The symptoms/episode began/occurred jm gradually, 1 day(s) ago. Modifying factors: The symptoms are alleviated by nothing. the symptoms are aggravated by nothing. Associated signs and symptoms: Pertinent positives: fever, sore throat. The patient has experienced a previous episode. Is a 47-year-old female with no known chronic medical conditions presents emerged part with complaints of cough, congestion, fever. Symptoms began last night and worsened this morning.. 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 - Social history:: Smoking status: Patient reports the use of cigarette tobacco products, 2-3 cigarettes a day . ROS: 10:43 Cardiovascular: Negative for chest pain, palpitations, and edema. jmm 10:43 Constitutional: Positive for body aches, chills, fever. 10:43 ENT: Positive for sore throat. 10:43 Respiratory: Positive for cough. 10:43 All other systems are negative. Exam: 10:43 Head/Face: atraumatic. Eyes: EOMI, no conjunctival erythema appreciated ENT: Moist jm Mucus Membranes Neck: Trachea midline, Supple 10:43 Chest/axilla: Normal chest wall appearance and motion. Cardiovascular: Regular rate and rhythm. No edema appreciated Respiratory: Normal respirations, no respiratory distress appreciated Abdomen/GI: Non distended Back: Normal ROM Skin: General appearance color normal MS/ Extremity: Moves all extremities, no obvious deformities appreciated, no edema noted to the lower extremities Neuro: Awake and alert Psych: Behavior is normal, Mood is normal, Patient is cooperative and pleasant 10:43 Constitutional: The patient appears in no acute distress, alert, awake. Vital Signs: 10:46 BP 139 / 88; Pulse 112; Resp 18 S; Temp 98.8(TE); Pulse Ox 98% on R/A; Weight 99.79 kg aa5 (R); Height 5 ft. 6 in. (167.64 cm) (R); 13:04 BP 128 / 80; Pulse 98; Resp 18; Pulse Ox 99% on R/A; ko1 10:46 Body Mass Index 35.51 (99.79 kg, 167.64 cm) aa5 MDM: 10:50 Patient medically screened. [facility] [place] 12:58 Data reviewed: vital signs, nurses notes. Counseling: I had a detailed discussion with jesus the patient and/or guardian regarding: the historical points, exam findings, and any diagnostic results supporting the discharge/admit diagnosis, lab results, radiology results, the need for outpatient follow up, to return to the emergency department if symptoms worsen or persist or if there are any questions or concerns that arise at home. 09/29 10:43 Order name: Strep; Complete Time: 11:18 [facility] 09/29 10:43 Order name: COVID-19/FLU A+B; Complete Time: 12:47 [facility] 09/29 11:23 Order name: Urine Dipstick-Ancillary; Complete Time: 11:23 [facility] 09/29 11:55 Order name: Throat Culture [facility] 09/29 11:55 Order name: Urine Dipstick-Ancillary [facility] 09/29 11:03 Order name: Urine Dipstick-Ancillary (obtain specimen); Complete Time: 11:19 [facility] 09/29 11:03 Order name: Urine Test (obtain specimen); Complete Time: 11:19 [facility] Administered Medications: 11:27 Drug: Tussionex Pennkinetic ER (chlorpheniramine-hydrocodone) Suspension 5 ml Route: PO;ko1 Disposition Summary: 09/29/22 12:58 Discharge Ordered Location: Home [facility] Condition: Stable [facility] Diagnosis - Coronavirus infection, unspecified [facility] Followup: [facility] - With: Private Physician - When: 2 - 3 days - Reason: Recheck today's complaints, Continuance of care, Re-evaluation by your physician Discharge Instructions: - Discharge Summary Sheet jmm - COVID-19 [facility] Forms: - Medication Reconciliation Form jm - Thank You Letter jmm - Antibiotic Education jm - Prescription Opioid Use [facility] Prescriptions: - promethazine-DM - take 10 milliliter by ORAL route every 4-6 hours; 200 milliliter; Refills: 0, jmm Product Selection Permitted Signatures: Dispatcher [employer] EDMS Ravin Vazquez MD MD cha Mickail, Joel, PA PA jmm Calderon, Audri, RN RN aa5 Nidia Munguia RN RN ko1 Corrections: (The following items were deleted from the chart) 10:47 10:47 Chest Pa And Lat (2 Views) ordered. EDNJ EDMS
[2022-09-29 13:12] VITALS: TEMP 98.8
[2022-09-29 13:13] VITALS: BP 128/80; O2SAT 99
== END 2022-09-29 13:08 | disposition home or self-care (01) ==
LOC: ER 10:31
DX: U07.1 COVID-19 (principal); F17.210 Nicotine dependence, cigarettes, uncomplicated
CPT/HCPCS: 87070; 87081; 81003; 0240U; 99284

== ENCOUNTER 2025-02-04 17:54 | Emergency (ER) | payer BC ==
--- OUTSIDE RECORDS SUMMARY | 2025-02-04 17:58 | XMS REPORT | Clinical Summary ---
Author Name Unknown Organization [facility] Address [address] [place] [address] Care Team Providers Care Grades 1 6 Tutor Name Role Phone Rakel Toribio MD Primary Care Provider [phone] Jackie Bush MD Unavailable Quynh Johnson MD Unavailable [phone] Vik Ricks MD Unavailable Allergies No known active allergies Medications guaifenesin/dex tromethorphan (MUCINEX DM ORAL) Take 1 tablet by mouth as needed. Active acetaminophen-c odeine (TYLENOL #3) 300 mg-30 mg tabletIndicatio ns:Pituitary adenoma,Acromeg isha Take 1 tablet by mouth every 6 (six) hours. 30 tablet 01/09/2019 Active ondansetron (ZOFRAN) 4 mg tabletIndicatio ns:Pituitary adenoma,Acromeg isha Take 1 tablet (4 mg) by mouth every 6 (six) hours as needed for nausea. 20 tablet 01/09/2019 Active senna-docusate (SENOKOT-S) 8.6 mg-50 mg tabletIndicatio ns:Pituitary adenoma,Acromeg isha Take 1 tablet by mouth 2 (two) times a day as needed for constipation . 60 tablet 01/09/2019 Active sodium chloride (OCEAN) 0.65% nasal sprayIndication s:Pituitary adenoma,Acromeg isha Apply 4 sprays to each nare every 6 (six) hours. 15 mL 01/09/2019 Active acetaminophen (TYLENOL) 325 mg tabletIndicatio ns:Pituitary adenoma,Acromeg isha Take 2 tablets (650 mg) by mouth every 6 (six) hours as needed for mild pain or fever. 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 GA NUNDSC ICRA EXC PITUITRY ANN TRNSNSL/SPHENOID 01/08/2019 Midline Procedure: ENDOSCOPIC ENDONASAL RESECTION OF SKULL BASE TUMOR,INTRADURAL OR EXTRADURAL; Surgeon: Vik Ricks MD; Location: MAIN OR; Service: NEUROSURGERY Medical devices from this surgery are in the Medical Devices section. GA NEUROENDOSCOPY ICRA W/RETRIEVAL FOREIGN BODY 01/08/2019 Midline Procedure: ENDOSCOPIC ENDONASAL APPROACH TO SKULL BASE AND PARANASAL SINUSES; Surgeon: Quynh Johnson MD; Location: MAIN OR; Service: HN - HEAD & NECK SURGERY Medical devices from this surgery are in the Medical Devices section. Medical History Medical History Date Comments Postoperative nausea and vomiting Family History Medical History Relation Name Comments Hypertension Father Stroke Maternal Grandfather Several Hypertension Maternal Grandmother No Known Problems Mother No Known Problems Paternal Grandfather No Known Problems Paternal Grandmother Relation Name Status Comments Father Alive Maternal Grandfather (Age 74) Maternal Grandmother Alive Mother Alive Paternal Grandfather Paternal Grandmother Social History Tobacco Use Types Packs/Day Years Used Date Smoking Tobacco: Light Smoker Cigarettes Started: 1992 Smokeless Tobacco: Never Comments:2-3 ciggs/month Alcohol Use Standard Drinks/Week Comments Yes 0 (1 standard drink = 0.6 oz pur e alcohol) Socailly 2-3 /month Comments No Sex and Gender Information Value Date Recorded Sex Assigned at Not on file Legal Sex Female 8:34 AM SYS DIR Gender Identity Not on file Sexual Orientation Not on file 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 Not on file Not on file Not on file Obstetrics History Para Term AB IAB SAB Ectopic Multiple Livin g Live Births 4 3 1 1 Date Outcome GA Total Labor Labor/2nd/3rd Weight Sex Type Anes PTL Angela A1 A5 Name Clin Para Para Para SAB Comments 1 Molar Gestation Plan of Treatment Health Maintenance Due Date Last Done Comments COVID-19 Vaccine (2023-2 5 season) 2024 Influenza Vaccine (Season Ended) 2025 Pneumococcal Vaccine Aged Out No long er eligible based on patient's age to complete this topic Medical Devices Implanted Type Area Outside Maintenance Worker Device Identifier Shelf Expiration Date Model / Serial / Lot Tisseel 10ml - [id number] Implanted:Qty: 1 on 01/08/2019 by Vik Ricks MD at [facility] Skin/Tiss ue [employer] 07/26/2020 [id number] / [id number] / [id number] Description:Implanted Skull Base Duragen Plus 3in X 3in - [id number] Implanted:Qty: 1 on 01/08/2019 by Vik Ricks MD at [facility] Skin/Tiss ue [employer] SURG 08/25/2021 [id number] / / [id number] Insurance [facility] PPO POS PPO POS PPO POS Advance Directives * Full Code (Latest Code Status on File) Date Activated Date Inactivated Comments 01/08/2019 8:25 AM 01/10/2019 2:21 PM Care Teams Grades 1 6 Tutor Relationship Specialty Start Date End Date Rakel Toribio MD [address] [place] [email or web address] PCP - General Endocrinology 12/19/18 Jackie Bush MD [address] [place] [phone] [email or web address] PCP - External Follow Up A Internal Medicine 12/19/18 Quynh Johnson MD [address] [place] [address] [email or web address] Consulting Physician Head and Neck Surgery 01/05/19 Vik Ricks MD [address] [place] [address] [email or web address] Consulting Physician Neurosurgery 12/22/18
[2025-02-04 20:28] LABS: Specific Gravity 1.012 (1.005-1.030); Urine Bacteria None Seen /HPF (<20); Urine Bilirubin NEGATIVE (Negative); Urine Blood 3+ (OVER) (Negative); Urine Clarity Extremely Turbid (Clear); Urine Color Red (Yellow); Urine Crystals Unidentified Many /HPF (None Seen); Urine Culture Reflex Order REFLEXED; Urine Glucose NEGATIVE (Negative); Urine Ketones TRACE (Negative); Urine Microscopic Reflex YN ORDER UMIC; Urine Mucus 1+ /HPF (None Seen); Urine Nitrite NEGATIVE (Negative); Urine Protein 1+ (Negative); Urine RBC >50 /HPF (None Seen); Urine Urobilinogen Normal (Normal); Urine WBC >50 /HPF (<5); Urine WBC Clump Occasional /HPF (None Seen); Urine Yeast (Budding) Occasional /HPF (None Seen); Urine pH 5.5 (5.0-7.0)
[2025-02-04 20:29] LABS: Absolute Eosinophils 0.1 K/uL (0-0.5); Absolute Lymphocytes (CBC) 2.4 K/uL (0.7-4.9); Absolute Monocytes 0.4 K/uL (0.1-1.3); Absolute Neutrophil 3.7 K/uL (1.8-8.0); Basophils % 0.4 % (0-1.3); Eosinophils % 0.9 % (0-4.4); Hematocrit 42.3 % (36.0-45.0); Hemoglobin 14.6 g/dL (12.0-15.0); Lymphocytes % 36.3 % (15.3-44.8); MCH 30.5 pg (27.0-35.0); MCHC 34.5 g/dL (32.0-36.0); MCV 88.4 fL (80-100); MPV 8.4 fL (7.6-11.3); Monocytes % 5.8 % (3.3-12.3); Neutrophils % 56.6 % (41.7-73.7); Platelets 258 thou/uL (152-406); RBC Red Blood Cell Count 4.79 M/uL (3.86-4.86); Red Cell Distribution Width 13.1 % (12.1-15.2)
--- NOTE | 2025-02-04 20:29 | RAD REPORT ---
EXAMINATION: Transvaginal Study Probe CLINICAL INDICATION: Pelvic pain with vaginal bleeding. TECHNIQUE: Real-time ultrasonography of the pelvis was performed transvaginally. Color and spectral D oppler evaluation of the ovaries was performed. COMPARISON: No prior exam. FINDINGS: The uterus measures 8 x 5 x 5 cm The endometrial stripe measures 9 mm. A fibroid is not seen. Right ovary normal in size and echotexture. 1.7 cm right ovarian cyst. It is benign. No follow-up rec ommended. Left ovary not seen secondary to overlying bowel gas. Right and left adnexa unremarkable No significant free fluid IMPRESSION: Endometrial stripe measures 9 mm. If the patient is premenopausal then this would be a normal finding .
[2025-02-04 20:46] LABS: Anion Gap 8.7 mEq/L (5.0-15.0); Potassium 3.7 mEq/L (3.5-5.1)
[2025-02-04] MEDS ORDERED: CEFTRIAXONE 1000 MG/VIAL ONE (20:59)
--- NOTE | 2025-02-04 20:59 | EDPHYS ---
Physician Documentation [facility] Name: Laura Hatch Age: 49 yrs Sex: Female : 1975 Arrival Date: 02/04/2025 Time: 17:54 Bed 13 Private MD: ED Physician Machelle Barbosa HPI: 02/04 18:14 This 49 yrs old Female presents to ER via Ambulatory with complaints of Vaginal kb Bleeding, Nausea. 18:14 Patient is a 49-year-old female who presents for vaginal bleeding that started this kb afternoon. States she is now having suprapubic pain as well. Reports she had an ablation in March 2024 and has not had any bleeding since then.. Historical: - Allergies: 18:13 Cipro; ll1 - Home Meds: 18:13 None [Active]; ll1 - PMHx: 18:13 Kidney Stones; ll1 - PSHx: 18:11 Cholecystectomy; Left ovary removed; pituitary tumor removed; tubal ligation; ll1 18:13 Uterine Ablation; ll1 - Immunization history:: Adult Immunizations up to date. - Infectious Disease History:: Denies. - Social history:: Smoking status: Reported history of juuling and/or vaping. ROS: 18:15 Constitutional: As per HPI kb Exam: 18:15 Constitutional: This is a well developed, well nourished patient who is awake, alert, kb and in no acute distress. Head/Face: Normocephalic, atraumatic. ENT: Moist Mucous membranes Cardiovascular: Regular rate Respiratory: Respirations even and unlabored. No increased work of breathing. Talking in full sentences Abdomen/GI: Soft, non-tender. No distention Skin: Warm, dry with normal turgor. Normal color. MS/ Extremity: Pulses equal, no cyanosis. Neurovascular intact. Full, normal range of motion. Neuro: Awake and alert, GCS 15, oriented to person, place, time, and situation. Vital Signs: 18:09 BP 138 / 93; Pulse 85; Resp 16; Temp 98.9(O); Pulse Ox 100% on R/A; Weight 87.54 kg; ll1 Height 5 ft. 7 in. ; Pain 5/10; 20:00 BP 123 / 81; Pulse 78; Resp 16; Pulse Ox 100% ; cm10 20:30 BP 116 / 75; Pulse 77; Resp 16; Pulse Ox 100% on R/A; cm10 21:00 BP 114 / 80; Pulse 84; Resp 16; Pulse Ox 100% ; cm10 18:09 Body Mass Index 30.23 (87.54 kg, 170.18 cm) ll1 18:09 Pain Scale: Adult ll1 MDM: 18:03 Medical Screening Exam initiated kb 18:15 Data reviewed: vital signs, nurses notes. kb 02/04 18:14 Order name: CBC with Diff; Complete Time: 20:54 kb 02/04 18:14 Order name: BMP; Complete Time: 20:54 kb 02/04 20:54 Interpretation: Normal except: CL 108. cp 02/04 18:14 Order name: UA Rfx King Cult if indicated; Complete Time: 20:54 kb 02/04 20:54 Interpretation: Normal except: [facility] Extremely Turbid; UKET TRACE; UBLD 3+ (OVER); UPROT cp 1+; UESTR 75; UWBC >50; URBC >50; UNCX Many; UWBC Clump Occasional; BYST Occasional. 02/04 20:32 Order name: Urine Culture EDFL 02/04 18:14 Order name: US Transvaginal Study (Probe); Complete Time: 20:54 kb 02/04 20:54 Interpretation: Reviewed report. 02/04 18:14 Order name: IV Start; Complete Time: 20:15 kb Administered Medications: 21:16 Drug: Rocephin IV 1 grams IV at calculated rate once; Given slow IV push per pharmacy cm10 instructions Route: IV; Rate: calculated rate; Site: left antecubital; 21:18 Follow up: Response: No adverse reaction; IV Status: Completed infusion; IV Intake: [id number] Disposition Summary: 02/04/25 20:59 Discharge Ordered Notes: Location: Home cp Problem: new cp Symptoms: have improved cp Condition: Stable cp Diagnosis - Abnormal uterine and vaginal bleeding, unspecified cp - UTI/ Urinary tract infection, site not specified cp Followup: cp - With: Private Physician - When: 2 - 3 days - Reason: Recheck today's complaints Discharge Instructions: - Discharge Summary Sheet cp - Abnormal Uterine Bleeding cp - Urinary Tract Infection, Adult cp Forms: - Medication Reconciliation Form cp - Antibiotic Education cp - Prescription Opioid Use cp - Patient Portal Instructions cp - Leadership Thank You Letter cp Prescriptions: - Anaprox DS 550 mg Oral Tablet - take 1 tablet ORAL route every 12 hours As needed; 20 tablet; Refills: 0, cp Product Selection Permitted - Zofran 4 mg Oral Tablet - take 1 tablet ORAL route every 12 hours As needed; 20 tablet; Refills: 0, cp Product Selection Permitted - cefpodoxime 200 mg Oral tablet - take 1 tablet ORAL route every 12 hours for 7 days with food; 14 tablet; cp Refills: 0, Product Selection Permitted Signatures: Dispatcher [employer] EDMS Holly Barraza, AIRWAY CONTROLLER-C AIRWAY CONTROLLER-Ckb Ravin Adams PA PA cp Lewis, Lynsay, RN RN ll1 Rebeka Ontiveros RN RN cm10 Corrections: (The following items were deleted from the chart) 18:14 18:11 Allergies: No Known Allergies; ll1 ll1 18:15 18:14 CBC+H.LAB.BRZ ordered. EDMS EDMS 18:15 18:14 BASIC METABOLIC PANEL+C.LAB.BRZ ordered. EDMS EDMS 18:15 18:15 UA Rfx King Cult if indicated+U.LAB.BRZ ordered. EDMS EDMS 18:15 18:15 Transvaginal Study (Probe)+US.RAD.BRZ ordered. EDMS EDMS
--- NOTE | 2025-02-04 20:59 | ER ---
Nurse's Notes [facility] Name: Laura Hatch Age: 49 yrs Sex: Female : 1975 Arrival Date: 02/04/2025 Time: 17:54 Bed 13 Private MD: Diagnosis: Abnormal uterine and vaginal bleeding, unspecified;UTI/ Urinary tract infection, site not specified Presentation: 02/04 18:09 Chief complaint: Heavy bright red vaginal bleeding and right sided abdominal pain that ll1 radiates to back that started at noon today. Had uterine ablation 1 year ago. Coronavirus screen: At this time, the client does not indicate any symptoms associated with coronavirus-19. Ebola Screen: No symptoms or risks identified at this time. Initial Sepsis Screen: Does the patient meet any 2 criteria? No. Patient's initial sepsis screen is negative. Does the patient have a suspected source of infection? No. Patient's initial sepsis screen is negative. Risk Assessment: Do you want to hurt yourself or someone else? Patient reports no desire to harm self or others. Onset of symptoms was February 04, 2025. 18:09 Method Of Arrival: Ambulatory ll1 18:09 Acuity: KRISTEN 3 ll1 Historical: - Allergies: 18:13 Cipro; ll1 - Home Meds: 18:13 None [Active]; ll1 - PMHx: 18:13 Kidney Stones; ll1 - PSHx: 18:11 Cholecystectomy; Left ovary removed; pituitary tumor removed; tubal ligation; ll1 18:13 Uterine Ablation; ll1 - Immunization history:: Adult Immunizations up to date. - Infectious Disease History:: Denies. - Social history:: Smoking status: Reported history of juuling and/or vaping. Screenin:00 [facility] ED Fall Risk Assessment (Adult) History of falling in the last 3 months, cm10 including since admission No falls in past 3 months (0 pts) Confusion or Disorientation No (0 pts) Intoxicated or Sedated No (0 pts) Impaired Gait No (0 pts) Mobility Assist Device Used No (0 pt) Altered Elimination No (0 pt) Score/Fall Risk Level 0 - 2 = Low Risk Oriented to surroundings, Maintained a safe environment, Hourly rounding (assess needs \T\ fall precautionary measures) done. Abuse screen: Denies threats or abuse. Denies injuries from another. Nutritional screening: No deficits noted. Tuberculosis screening: No symptoms or risk factors identified. Assessment: 20:00 General: Appears in no apparent distress. uncomfortable, Behavior is calm, cooperative. cm10 Pain: Complains of pain in abdomen Pain currently is 5 out of 10 on a pain scale. Quality of pain is described as crampy. Neuro: No deficits noted. Level of Consciousness is awake, alert, obeys commands, Oriented to person, place, time, situation, Appropriate for age. Respiratory: No deficits noted. Airway is patent Respiratory effort is even, unlabored, Respiratory pattern is regular, symmetrical. : Urine is antoinette blood, Reports vaginal bleeding that is. Musculoskeletal: No deficits noted. Range of motion: intact in all extremities. Vital Signs: 18:09 BP 138 / 93; Pulse 85; Resp 16; Temp 98.9(O); Pulse Ox 100% on R/A; Weight 87.54 kg; ll1 Height 5 ft. 7 in. ; Pain 5/10; 20:00 BP 123 / 81; Pulse 78; Resp 16; Pulse Ox 100% ; cm10 20:30 BP 116 / 75; Pulse 77; Resp 16; Pulse Ox 100% on R/A; cm10 21:00 BP 114 / 80; Pulse 84; Resp 16; Pulse Ox 100% ; cm10 18:09 Body Mass Index 30.23 (87.54 kg, 170.18 cm) ll1 18:09 Pain Scale: Adult ll1 ED Course: 17:57 Patient arrived in ED. al6 18:03 Holly Barraza FNP-C is PHCP. kb 18:03 Machelle Barbosa MD is Attending Physician. kb 18:11 Triage completed. ll1 18:11 Arm band placed on. ll1 19:23 US Transvaginal Study (Probe) In Process Unspecified. EDMS 19:29 PHCP role handed off by Holly Barraza FNP-C cp 19:29 Ravin Adams PA is PHCP. cp 19:38 Rebeka Ontiveros, PRINCE is Primary Nurse. cm10 20:00 Missed attempt(s): 20 gauge in right wrist. Bleeding controlled, band aid applied, cm10 catheter tip intact. 20:15 BMP Sent. cm10 20:15 CBC with Diff Sent. cm10 20:15 UA Rfx King Cult if indicated Sent. cm10 20:15 Initial lab(s) drawn, by me, sent to lab. Inserted saline lock: 20 gauge in left cm10 antecubital area, using aseptic technique. Blood collected. Flushed with 10 mL NS. 20:16 Patient has correct armband on for positive identification. Bed in low position. Call cm10 light in reach. Side rails up X 1. Pulse ox on. NIBP on. 21:30 Provided Education on: Follow-up instructions. cm10 21:30 No provider procedures requiring assistance completed. IV discontinued, intact, cm10 bleeding controlled, No redness/swelling at site. Pressure dressing applied. Administered Medications: 21:16 Drug: Rocephin IV 1 grams IV at calculated rate once; Given slow IV push per pharmacy cm10 instructions Route: IV; Rate: calculated rate; Site: left antecubital; 21:18 Follow up: Response: No adverse reaction; IV Status: Completed infusion; IV Intake: [id number] Medication: 20:16 VIS not applicable for this client. cm10 Intake: 21:18 IV: 10ml; Total: 10ml. cm10 Outcome: 20:59 Discharge ordered by MD. cp 21:31 Discharged to home ambulatory, cm10 21:31 Condition: good 21:31 Discharge instructions given to patient, Instructed on discharge instructions, follow up and referral plans. medication usage, Demonstrated understanding of instructions, follow-up care, medications, Prescriptions given X 4, 21:32 Patient left the ED. cm10 Signatures: Dispatcher [employer] EDNM Holly Barraza, GUY ALLIGATOR HUNTER-Ravin Coburn PA PA cp Lewis, Lynsay, RN RN ll1 Rebeka Ontiveros RN RN cm10 Radha Vegas6 Corrections: (The following items were deleted from the chart) 18:13 18:09 Chief complaint: Heavy vaginal bleeding and right sided abdominal pain that ll1 radiates to back that started at noon today. Had uterine ablation 1 year ago. ll1 18:13 18:09 BP 138 / 93; Pulse 85bpm; Resp 16bpm; Pulse Ox 100% RA; Temp 98.9F Oral; ll1 ll1 18:14 18:11 Allergies: No Known Allergies; ll1 ll1
[2025-02-04 21:41] VITALS: TEMP 98.9; O2SAT 100
[2025-02-04 21:44] VITALS: BP 114/80
== END 2025-02-04 21:32 | disposition home or self-care (01) ==
LOC: ER 17:54
DX: N39.0 Urinary tract infection, site not specified (principal); Z87.442 Personal history of urinary calculi
CPT/HCPCS: 87088; 85025; 81001; 87086; 80048; 36415; 76830; 96374; 99284; J0696